=== PATIENT | male | born 1975 | race Caucasian/White ===

== ENCOUNTER 2022-05-25 12:17 | Outpatient (CLI) | payer BC, SELFPAY ==
[2022-05-25 12:38] LABS: Albumin* 4.4 g/dL (3.3-5.0)
[2022-05-25 12:39] LABS: Chloride* 105 mmol/L (96-114); Potassium* 4.4 mmol/L (3.6-5.1); Sodium* 141 mmol/L (135-149)
[2022-05-25 12:41] LABS: Aspartate Amino Transferase* 34 U/L (12-35); Bilirubin Total* 0.5 mg/dL (0.1-1.5); Blood Urea Nitrogen* 13 mg/dL (5-24); Carbon Dioxide* 30 mmol/L (20-32); Cholesterol* 151 mg/dL (90-199); Creatinine* 0.9 mg/dL (0.5-1.5); Estimated Glomerular Filt Rate 107 ml/min; Total Protein* 7.2 g/dL (6.0-8.3)
[2022-05-25 12:42] LABS: Alanine Aminotransferase* 50 U/L (4-50); Alkaline Phosphatase* 72 U/L (40-150); Calcium* 9.3 mg/dL (8.4-10.6); Glucose* 101 mg/dL (60-115); HDL Cholesterol* 40 mg/dL (>=40); LDL Cholesterol Calculated 68 mg/dL (<100); Triglycerides* 214 mg/dL (40-149)
== END 2022-05-25 12:18 | disposition home or self-care (01) ==
PROVIDERS: PCP Family Medicine; Visit Provider Family Medicine
DX: Z00.00 Encounter for general adult medical examination without abnormal findings (principal); E78.5 Hyperlipidemia, unspecified
CPT/HCPCS: 80053; 80061

== ENCOUNTER 2022-08-01 09:00 | Outpatient (RCR) | payer OTHER, BC, SELFPAY | END 2023-01-03 23:59 | disposition home or self-care (01) | PROVIDERS: PCP Family Medicine; Visit Provider Family Medicine | DX: M54.2 Cervicalgia (principal); Z51.89 Encounter for other specified aftercare | CPT/HCPCS: 97012; 97032; 97110; 97140; 97162; 97530; 97535 ==

== ENCOUNTER 2022-10-15 04:00 | Emergency (ER) | payer BC, OTHER, SELFPAY ==
[2022-10-15] VITALS (7 sets, daily range): BP systolic 116–132; BP diastolic 71–92; PULSE 77; RESP 20; TEMP 36.4; O2SAT 97–100; BMI 34.2
[2022-10-15 05:09] LABS: Basophils Absolute Auto 0.03 K/uL (0.00-0.30); Basophils Percent Auto 0.6 % (0.0-3.0); Eosinophils Absolute Auto 0.26 K/uL (0.00-0.50); Eosinophils Percent Auto 4.8 % (0.0-7.0); Hematocrit 45.8 % (37.0-53.0); Hemoglobin* 15.3 gm/dL (13.5-17.5); Immature Granulocytes Abs Auto 0.02 K/uL (0.00-0.30); Immature Granulocytes Pct Auto 0.4 %; Lymphocytes Absolute Auto 1.33 K/uL (0.90-2.90); Lymphocytes Percent Auto 24.7 % (20-44); Mean Corpuscular HGB Conc 33 gm/dL (32-36); Mean Corpuscular Hemoglobin 28 pg (26-34); Mean Corpuscular Volume 83 fL (80-100); Monocytes Percent Auto 6.1 % (0.0-11.0); Neutrophils Absolute Auto 3.42 K/uL (1.7-7.0); Neutrophils Percent Auto 63.4 % (42.0-72.0); Platelet Count* 104 K/uL (140-440); RDW Coefficient of Variation % 13.1 % (11.5-15.5); White Blood Count* 5.39 K/uL (4.50-11.00)
[2022-10-15 05:14] LABS: Slide Review Reflex No
[2022-10-15 05:26] LABS: Albumin* 4.1 g/dL (3.3-5.0); Chloride* 106 mmol/L (96-114)
[2022-10-15 05:27] LABS: Potassium* 4.2 mmol/L (3.6-5.1); Sodium* 138 mmol/L (135-149)
[2022-10-15 05:29] LABS: Creatinine* 0.8 mg/dL (0.5-1.5); Est. Creatinine Clearance* 122.89; Estimated Glomerular Filt Rate 111 ml/min
[2022-10-15 05:30] LABS: Alanine Aminotransferase* 59 U/L (4-50); Alkaline Phosphatase* 61 U/L (40-150); Aspartate Amino Transferase* 35 U/L (12-35); Bilirubin Direct* 0.3 mg/dL (0.0-0.5); Bilirubin Total* 0.6 mg/dL (0.1-1.5); Blood Urea Nitrogen* 13 mg/dL (5-24); Carbon Dioxide* 25 mmol/L (20-32); Glucose* 120 mg/dL (60-115); Total Protein* 7.3 g/dL (6.0-8.3)
[2022-10-15 05:31] LABS: Calcium* 9.1 mg/dL (8.4-10.6)
[2022-10-15 05:33] LABS: C Reactive Protein* 0.6 mg/dL (0.5-1.0)
[2022-10-15 05:42] LABS: Troponin I* < 0.01 ng/mL (0.01-0.04)
[2022-10-15 05:43] LABS: NT Pro B Type NatriureticPept* < 20 pg/mL
--- NOTE | 2022-10-15 06:36 | CRLHL7_ITS ---
For Patients: As a result of the Century Cures Act, medical imaging exams and procedure reports are released immediately into your electronic medical record. You may view this report before your referring provider. If you have questions, please contact your health care provider. INDICATION: elevated ALT, abd pain TECHNIQUE: Ultrasound abdomen limited. Sonographic images of the right upper quadrant were obtained using woodward-scale and color Doppler images. COMPARISON: None. FINDINGS: Liver: Hepatic parenchyma demonstrates severe increased echogenicity which limit evaluation of the underlying parenchyma. No intrahepatic biliary dilatation. Gallbladder: No stones or sludge. Normal wall thickness. No pericholecystic fluid. Negative Erickson`s sign. Common bile duct: Upper limits of normal at 5 mm. Pancreas: Obscured by bowel gas artifact. Right kidney: Normal in size. Normal echotexture and cortex. No suspicious masses, stones, or hydronephrosis. Vasculature: Proximal abdominal aorta and IVC are unremarkable. IMPRESSION: Severe hepatic steatosis. CBD upper limits of normal at 5 mm. Unremarkable appearing gallbladder. Dictated by Erik Dorsey MD @ 10/15/2022 7:32:52 AM (Electronically Signed)
--- NOTE | 2022-10-15 08:52 | ED_ITS ---
HPI - Abdominal Pain General Chief Complaint: Abdominal Pain Stated Complaint: cramping in abdomen Time Seen by Provider: 10/15/22 04:47 History of Present Illness HPI narrative: Patient c/o sudden onset of upper abdominal pressure, weakness, nausea without vomiting, and diaphoresis that woke him from sleep at 0315 today. Patient states this self?resolved, but then had two more episode last ing around 5 minutes. Patient states he has known CAD with 10% blockage and takes rosuvastatin. Patient does also have an h/ o GERD and eosinophilic esophagitis - for which he has not been taking his prescribed medication for. Patient did take TUMS last night. 46-year-old man with complaint of epigastric area waking him from sleep about an hour and half prior to this evaluation. Had a couple small episodes following this. All self resolved. He does report having had what sounds like a coronary CT with some unclear degree of blockage in my conversation. Underlying history of GERD in eosinophilic esophagitis. He did feel nauseated with this but did not vomit. Was diaphoretic. Not short of breath. No fever cough or cold symptoms recently. He does note a history of renal stones/ureteral stones with this felt very different just ?weird?. Denies a history of particular food intolerances. No family history of gallbladder disease that he knows of. Underlying history also of anxiety, PTSD, reactive airway. Related Data Home Medications Medication Instructions Recorded Confirmed omeprazole 40 mg capsule,delayed 40 mg PO QAM 08/24/22 10/15/22 release calcium carbonate 300 mg (750 mg) 300 mg PO Q4-6H PRN 10/15/22 10/15/22 chewable tablet (Tums) Previous Rx's Medication Instructions Recorded albuterol sulfate 90 mcg/actuation 2 inh inhalation Q2H PRN shortness 02/07/22 aerosol inhaler (Ventolin HFA) of breath or wheezing #8.5 grams inhalational spacing device #1 ea 02/07/22 escitalopram oxalate 10 mg tablet 10 mg PO DAILY #90 tabs 07/09/22 rosuvastatin 20 mg tablet 20 mg PO QDAY #90 tabs 07/09/22 Allergies Allergy/AdvReac Type Severity Reaction Status Date / Time No Known Drug Allergies Allergy Verified 05/24/22 09:53 Review of Systems Status of ROS Reports: 6 or more systems reviewed and unremarkable except as noted in History and below [facility] Medical History Calculus of kidney (05/24/09) ?N20.0 - Calculus of kidney (ICD-10) High coronary artery calcium score ?R93.1 - Abnormal findings on diagnostic imaging of heart and coronary circulation (ICD-10) Normal stress echocardiography Surgical History History of lithotripsy ?Z98.890 - Other specified postprocedural states (ICD-10) History of third molar tooth extraction ?K08.409 - Partial loss of teeth, unspecified cause, unspecified class (ICD- 10) Family History Paternal Grandmother Heart disease Social History Narrative: Non smoker Rarely drinks alcohol Does not use illicit drugs Smoking Status: Never smoker Little interest or pleasure in doing things: nearly every day Feeling down, depressed, or hopeless: more than half the days Exam Narrative: Exam Narrative: Pleasant. NAD. Skin is warm and dry. Speaking easily breathing easily. In no distress at this time. Cranial nerves 2-12 intact. Lungs are clear heart with regular rate and rhythm. Distant but no murmur rub or gallop identified. Abdomen is overweight soft and nontender. Indicates area of discomfort had been in the epigastrium just a little bit more distal/caudal. Bowel sounds are present normal. Moving all extremities without difficulty is well perfused. No edema. Const: Vital Signs, click to edit/add: Vital Signs - 24 hr 10/15/22 04:17 10/15/22 04:58 10/15/22 04:31 Temperature 97.5 F L Pulse Rate [Left P ulse Oximeter] 77 Respiratory Rate 20 Blood Pressure 126/91 H Blood Pressure [Ri ght Upper Arm] 116/92 H Pulse Oximetry 97 100 Oxygen Delivery Me thod Room Air 10/15/22 04:32 10/15/22 05:02 10/15/22 05:32 Temperature Pulse Rate [Left P ulse Oximeter] Respiratory Rate Blood Pressure 129/83 131/88 132/80 Blood Pressure [Ri ght Upper Arm] Pulse Oximetry Oxygen Delivery Me thod 10/15/22 06:02 Temperature Pulse Rate [Left P ulse Oximeter] Respiratory Rate Blood Pressure 126/71 Blood Pressure [Ri ght Upper Arm] Pulse Oximetry Oxygen Delivery Me thod Documenting provider has reviewed patient's vital signs: yes Course Vital Signs Vital signs: Initial Vital Signs Temperature 97.5 F L 10/15/22 04:17 Temperature Source Temporal Artery Scan 10/15/22 04:17 Pulse Rate 77 10/15/22 04:17 Respiratory Rate 20 10/15/22 04:17 Blood Pressure 116/92 H 10/15/22 04:17 Blood Pressure Mean 100 10/15/22 04:17 Blood Pressure Position Semi-Fowlers 10/15/22 04:17 Pulse Oximetry 97 10/15/22 04:17 Oxygen Delivery Method Room Air 10/15/22 04:17 Vital Signs Temperature 97.5 F L 10/15/22 04:17 Pulse Rate 77 10/15/22 04:17 Respiratory Rate 20 10/15/22 04:17 Blood Pressure 116/92 H 10/15/22 04:17 Pulse Oximetry 97 10/15/22 04:17 Oxygen Delivery Method Room Air 10/15/22 04:17 Temperature 97.5 F L 10/15/22 04:17 Pulse Rate 77 10/15/22 04:17 Respiratory Rate 20 10/15/22 04:17 Blood Pressure 126/71 10/15/22 06:02 Pulse Oximetry 100 10/15/22 04:58 Oxygen Delivery Method Room Air 10/15/22 04:17 MDM - Abdominal Pain MDM Narrative Medical decision making narrative: Review of records shows high coronary calcium score and subsequent normal stress echocardiography. Think reasonable to check labs cardiac in particular monitor on director of cardiac cath lab during time in the emergency department. Certainly this could have been a coronary ischemic event. Could also been attack of anxiety. Given GERD history perhaps there was some of this and some esophageal spasm related. Could have been gallbladder disease and related spasm or passing a stone. Labs are overall reassuring. Troponins negative. Mildly elevated ALT wonder more consistent with fatty liver as he does not drink alcohol. We do happen to have ultrasound available this early childhood educator aide. I did ask them to have a quick look at his abdomen limited right upper quadrant ultrasound. Did discuss these findings with the group therapist noted to be normal other than marked fatty liver/hepatic steatosis. Again overall improved. Would follow up in primary care for further discussion of necessary evaluation. Lab Data Attestation: I reviewed the patient's lab results. Labs: Lab Results 10/15/22 10/15/22 Range/Units 04:59 05:05 WBC 5.39 (4.50-11.00) K/uL RBC 5.50 (4.30-5.90) m/uL Hgb 15.3 (13.5-17.5) gm/dL Hct 45.8 (37.0-53.0) % MCV 83 (80-100) fL MCH 28 (26-34) pg MCHC 33 (32-36) gm/dL RDW Coeff of Deven 13.1 (11.5-15.5) % Plt Count 104 L (140-440) K/uL Neut % (Auto) 63.4 (42.0-72.0) % Lymph % (Auto) 24.7 (20-44) % [place] % (Auto) 6.1 (0.0-11.0) % Eos % (Auto) 4.8 (0.0-7.0) % Baso % (Auto) 0.6 (0.0-3.0) % Neut # (Auto) 3.42 (1.7-7.0) K/uL Lymph # (Auto) 1.33 (0.90-2.90) K/uL [place] # (Auto) 0.30 (0.00-0.90) K/UL Eos # (Auto) 0.26 (0.00-0.50) K/uL Baso # (Auto) 0.03 (0.00-0.30) K/uL Sodium 138 (135-149) mmol/L Potassium 4.2 (3.6-5.1) mmol/L Chloride 106 (96-114) mmol/L Carbon Dioxide 25 (20-32) mmol/L BUN 13 (5-24) mg/dL Creatinine 0.8 (0.5-1.5) mg/dL Estimated Creat Clear 122.89 Estimated GFR 111 ml/min Glucose 120 H (60-115) mg/dL Calcium 9.1 (8.4-10.6) mg/dL Total Bilirubin 0.6 (0.1-1.5) mg/dL Direct Bilirubin 0.3 (0.0-0.5) mg/dL AST 35 (12-35) U/L ALT 59 H (4-50) U/L Alkaline Phosphatase 61 (40-150) U/L Troponin I < 0.01 L (0.01-0.04) ng/mL C-Reactive Protein 0.6 (0.5-1.0) mg/dL NT-Pro-B Natriuret Pep < 20 pg/mL Total Protein 7.3 (6.0-8.3) g/dL Albumin 4.1 (3.3-5.0) g/dL POC Troponin I 0.00 L (0.01-0.04) ng/ml ECG Data Attestation: I personally reviewed and interpreted this ECG as follows: (Normal sinus rhythm rate of 68 without ischemic changes) Discharge Plan Discharge Clinical Impression: Acute epigastric pain, Fatty liver Patient Disposition: Home w/ Parent or Adult Condition: Improved Additional Instructions: Stay well-hydrated. I guess I would keep taking your omeprazole at this point. Return for persistent recurrence of pain, associated with shortness of breath, vomiting, diaphoresis. Would follow-up with your primary care provider to consider further evaluation from a cardiac perspective. Prescriptions: No Action omeprazole 40 mg capsule,delayed release(DR/EC) 40 mg PO QAM albuterol sulfate [Ventolin HFA] 90 mcg/actuation HFA aerosol inhaler 2 inh inhalation Q2H PRN (Reason: shortness of breath or wheezing) Qty: 8.5 5RF (DME) inhalational spacing device Spacer See Rx Instructions .Route Qty: 1 1RF Rx Instructions: As directed with albuterol calcium carbonate [Tums] 300 mg (750 mg) tablet,chewable 300 mg PO Q4-6H PRN rosuvastatin 20 mg tablet 20 mg PO QDAY Qty: 90 3RF escitalopram oxalate 10 mg tablet 10 mg PO DAILY Qty: 90 1RF Follow Up/Referrals: Tamiko Ocampo DO [Primary Care Provider] - Stand Alone Forms: [facility] Info Instructions
== END 2022-10-15 07:18 | disposition home or self-care (01) ==
PROVIDERS: Emergency Provider Family Medicine; PCP Family Medicine
DX: R10.13 Epigastric pain (principal); K76.0 Fatty (change of) liver, not elsewhere classified
CPT/HCPCS: 36415; 76705; 80048; 80076; 83880; 84484; 85025; 86140; 93005; 94761; 99284

== ENCOUNTER 2023-02-14 08:03 | Outpatient (CLI) | payer BC, OTHER, SELFPAY | END 2023-02-14 08:04 | disposition home or self-care (01) | PROVIDERS: PCP Family Medicine; Visit Provider Family Medicine | DX: Z00.00 Encounter for general adult medical examination without abnormal findings (principal); E66.01 Morbid (severe) obesity due to excess calories; E78.5 Hyperlipidemia, unspecified; K76.0 Fatty (change of) liver, not elsewhere classified; N52.9 Male erectile dysfunction, unspecified; R53.83 Other fatigue | CPT/HCPCS: 80053; 80061; 84403; 84443; 85027 ==

== ENCOUNTER 2023-02-28 08:41 | Outpatient (CLI) | payer BC, OTHER, SELFPAY ==
--- NOTE | 2023-02-28 09:41 | W.ANESCHARGE ---
Anesthesia Charges Start Date/Time Anesthesia Start Date: 02/28/23 Anesthesia Start Time: 09:11 Stop Date/Time Anesthesia Stop Date: 02/28/23 Anesthesia Stop Time: 09:41
== END 2023-02-28 08:42 | disposition home or self-care (01) ==
LOC: OP CLINIC 08:43
PROVIDERS: PCP Family Medicine; Visit Provider Surgery
DX: Z12.11 Encounter for screening for malignant neoplasm of colon (principal); K63.5 Polyp of colon; K64.8 Other hemorrhoids; Z86.010 Personal history of colon polyps
CPT/HCPCS: 45385; 811; 88305; J2704

== ENCOUNTER 2024-08-13 11:43 | Outpatient (CLI) | payer BC, SELFPAY | END 2024-08-13 11:44 | disposition home or self-care (01) | LOC: FRMREF 11:45 | PROVIDERS: Visit Provider Nurse Practitioner Family | DX: E29.1 Testicular hypofunction (principal); E78.5 Hyperlipidemia, unspecified; Z12.5 Encounter for screening for malignant neoplasm of prostate; R73.03 Prediabetes; E66.01 Morbid (severe) obesity due to excess calories | CPT/HCPCS: 80053; 80061; 84403; G0103 ==

== ENCOUNTER 2024-11-06 01:22 | Emergency (ER) | payer BC, SELFPAY ==
--- OUTSIDE RECORDS SUMMARY | 2024-11-06 01:24 | XMS_ITS | Clinical Summary ---
Author Organization [facility] Address [address] [place] [id number] Care Team Providers Care Die Finisher Name Role Phone Clinic, No Pcp Or Primary Care Provider Unavaila ble Allergies No known active allergies Medications escitalopram oxalate (LEXAPRO ORAL) Take by mouth. Active rosuvastatin (CRESTOR) 20 mg tabletIndications:Pure hypercholesterolemia Take 1 tablet by mouth once daily. 90 tablet 3 07/29/19 21 Active ondansetron (ZOFRAN ODT) 4 mg disintegrating tabletIndications:Nause a and vomiting, unspecified vomiting type Place 1 Tablet (4 mg) on the tongue every 8 hours if needed for Nausea/Vomit ing. 20 Tablet 10/20/19 23 Active omeprazole (PRILOSEC) 40 mg Delayed-Release capsuleIndications:Aviva ngopharyngeal reflux TAKE 1 CAPSULE ORALLY ONCE DAILY BEFORE A MEAL IN MORNING UNLESS TOLD OTHERWISE BY YOUR PROVIDER 90 Capsule 2 12/04/19 24 Active Active Problems Problem Noted Date Diagnosed Date PTSD (post-traumatic stress disorder) 06/01/2022 Anxiety and depression 05/29/2022 Hyperlipemia, mixed 05/29/2022 Eosinophilic esophagitis 06/04/2012 Overview (06/04/2012): EGD 05/2012 eosinophilic esophagitis Hyperplastic colon polyp 01/19/2011 Overview (01/19/2011): Colonoscopy 01/2011 polyp, colonoscopy at age 50 Rectal bleeding 11/16/2010 Diarrhea 11/16/2010 IBS (irritable bowel syndrome) 11/16/2010 Family History Medical History Relation Name Comments Good Health Other Relation Name Status Comments Father Alive Mother Alive Other Social History Tobacco Use Types Packs/Day Years Used Date Smoking Tobacco: Never Smokeless Tobacco: Never Tobacco Cessation:Counseling Given: Yes Alcohol Use Standard Drinks/Week Comments Never 0 (1 standard drink = 0.6 oz pur e alcohol) RARE Social Connections Answer Date Recorded Frequency of Communication with Friends and Fami ly Not on file 06/17/2021 Financial Resource Strain Answer Date R ecorded Difficulty of Paying Living Expenses Not on file 06/17/2021 Difficulty of Paying Living Expenses Not on file 06/17/2021 Sex and Gender Information Value Date Recorded Sex Assigned at Not on file 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 Gender Identity Not on file Sexual Orientation Not on file Obstetrics History Last Filed Vital Signs Vital Sign Reading Time Taken Comments Blood Pressure 111/70 10/19/2022 6:01 AM CDT Pulse 111 10/19/2022 6:01 AM CDT Temperature 37.8 C (100 F) 10/19/2022 5:32 AM CDT Respiratory Rate 18 10/19/2022 5:32 AM CDT Oxygen Saturation 95% 10/19/2022 6:01 AM CDT Inhaled Oxygen Concentration - - Weight 111.1 kg (245 lb) 10/19/2022 2:15 AM CDT Height 180.3 cm (5' 11) 10/19/2022 2:15 AM CDT Body Mass Index 34.17 10/19/2022 2:15 AM CDT Plan of Treatment Health Maintenance Due Date Last Done Comments Tdap 12/10/1986 Depression screening for age 12+ 1987 HIV for age 15-65 12/10/1990 Hepatitis C screening for ag e 18-79 12/10/1993 Hepatitis B series for 19+ ( 1 of 3 - 19+ 3-dose series) 12/10/1994 Tetanus booster 1995 Lipids for age 45-75 12/10/2020 Colonoscopy through age 75 01/18/202101/18, 01/18/2011 BMI (ht and wt on same day) for age 18+ 06/01/2023 06/01/2022 COVID-19 vaccine series ( season) 2024 07/19/2020, 06/21/2020 Influenza Vaccine (Season Ended) 2025 Pneumococcal series for age 6-49 Aged Out No longer eligible b ased on patient's age to complete this topic Insurance [facility] [employer] Care Teams Die Finisher Relationship Specialty Start Date End Date Clinic, No Pcp Or . PCP - General 02/04/22
--- OUTSIDE RECORDS SUMMARY | 2024-11-06 01:24 | XMS_ITS | Clinical Summary ---
Author Organization [facility] Address [address] [place] [id number] Care Team Providers Care Area Relief Pilot Name Role Phone Clinic, [facility] Primary Care Provider Allergies No known active allergies Medications ibuprofen (ADVIL/MOTRIN) 600 MG tablet Take 1 tablet (600 mg) by mouth every 6 hours as needed for moderate pain 20 tablet 08/02/2020 Active Social History Tobacco Use Types Packs/Day Years Used Date Smoking Tobacco: Never Assessed Adolescent Education Answer Date Record ed Getting School Help Needed Not on file 03/24 Sex and Gender Information Value Date Recorded Sex Assigned at Not on file 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 Gender Identity Not on file Sexual Orientation Not on file Last Filed Vital Signs Vital Sign Reading Time Taken Comments Blood Pressure 138/92 08/02/2020 11:15 PM SURGICAL AIDES TEACHER Pulse 78 08/02/2020 11:15 PM SURGICAL AIDES TEACHER Temperature 36.5 C (97.7 F) 08/02/2020 8:36 PM SURGICAL AIDES TEACHER Respiratory Rate 18 08/02/2020 8:36 PM SURGICAL AIDES TEACHER Oxygen Saturation 94% 08/02/2020 11:15 PM SURGICAL AIDES TEACHER Inhaled Oxygen Concentration - - Weight - - Height - - Body Mass Index - - Plan of Treatment Not on file Insurance [employer] Care Teams Area Relief Pilot Relationship Specialty Start Date End Date Clinic, [address] [phone] PCP - General 08/02/20
[2024-11-06 01:29] VITALS: BP 166/95; PULSE 67; RESP 16; TEMP 36.6; O2SAT 97; BMI 91.5
[2024-11-06] MEDS: LORazepam 1 MG TABLET PO (02:03)
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
== END 2024-11-06 02:21 | disposition home or self-care (01) ==
LOC: ED 02:04
PROVIDERS: Emergency Provider Family Medicine
DX: F41.9 Anxiety disorder, unspecified (principal)
CPT/HCPCS: 99282; 99283; A9270

== ENCOUNTER 2024-12-31 14:26 | Outpatient (CLI) | payer BC, SELFPAY | END 2024-12-31 14:27 | disposition home or self-care (01) | LOC: NFLDREF 01-03 02:32 | PROVIDERS: PCP Nurse Practitioner Family; Visit Provider Nurse Practitioner Family | DX: R10.12 Left upper quadrant pain (principal); K59.00 Constipation, unspecified | CPT/HCPCS: 87086 ==